=== PATIENT | female | born 1965 | race Asian ===

== ENCOUNTER 2017-09-13 11:23 | Inpatient (IN) | payer OTHER ==
[~2017-09-13] VITALS: Ht 157.5 cm; Wt 63.0 kg
[2017-09-13 11:27] VITALS: Ht 157.5 cm; Wt 63.0 kg
[2017-09-13 12:01] LABS: BASOPHIL % 0.7 % (0-2); PLATELET COUNT 189 x10^3mcL (130-400); RED CELL DISTRIBUTION WIDTH 13.7 % (11.5-14.5)
[2017-09-13 12:11] LABS: CALCIUM 8.5 mg/dL (8.5-10.1); CARBON DIOXIDE 31.4 mmol/L (21-32); CHLORIDE SERUM 124 mmol/L (98-107); CREATININE SERUM 0.9 mg/dL (0.6-1.0); GFR1 > 60 mL/min; GLUCOSE SERUM 132 mg/dL (74-106); POTASSIUM SERUM 4.3 mmol/L (3.5-5.1); SODIUM SERUM 143 mmol/L (136-145)
[2017-09-13 12:16] LABS: ALBUMIN 3.5 g/dL (3.4-5.0); ALKALINE PHOSPHATASE 66 U/L (46-116); ALT/SGPT 18 U/L (14-59); AST/SGOT 18 U/L (15-37); BILIRUBIN TOTAL 0.5 mg/dL (0.20-1.00)
[2017-09-13 14:20] LABS: MAGNESIUM 2.3 mg/dL (1.8-2.4); PHOSPHOROUS 3.7 mg/dL (2.5-4.9)
[2017-09-13 14:25] LABS: CHOLESTEROL/HDL RATIO 2.4
[2017-09-13 14:27] LABS: FREE T4 1.07 ng/dL (0.76-1.46); FREE THYROXINE INDEX 2.9 ug/dL (1.4-4.5); T4(THYROXINE) 9.2 ug/dL (4.7-13.3)
[2017-09-13 14:29] LABS: T3 TOTAL 1.14 ng/mL
[2017-09-13] MEDS ORDERED: ZESTRIL20 MG PO (14:55)
[2017-09-13] MEDS ORDERED: PLA75 PO (14:55)
[2017-09-13 15:14] VITALS: BP 112/72
[2017-09-13 15:22] LABS: microscopic required? NO
[2017-09-13 16:08] VITALS: BP 116/50
[2017-09-13 16:08] LABS: UA SPECIFIC GRAVITY <=1.005 (1.005-1.035); urine erythrocyte NEGATIVE (NEGATIVE)
[2017-09-13] MEDS ORDERED: FLONS (16:26)
[2017-09-13] MEDS ORDERED: ZYRTEC10 MG PO (16:26)
[2017-09-13 20:53] VITALS: BP 121/66
[2017-09-14 05:55] VITALS: BP 104/56
[2017-09-14 06:32] LABS: CALCIUM 8.9 mg/dL (8.5-10.1); CARBON DIOXIDE 26.8 mmol/L (21-32); CHLORIDE SERUM 108 mmol/L (98-107); CREATININE SERUM 0.7 mg/dL (0.6-1.0); GFR1 > 60 mL/min; GLUCOSE SERUM 131 mg/dL (74-106); MAGNESIUM 2.3 mg/dL (1.8-2.4); PHOSPHOROUS 3.6 mg/dL (2.5-4.9); PLATELET COUNT 202 x10^3mcL (130-400); POTASSIUM SERUM 4.1 mmol/L (3.5-5.1); RED CELL DISTRIBUTION WIDTH 13.8 % (11.5-14.5); SODIUM SERUM 142 mmol/L (136-145)
[2017-09-14 06:42] LABS: BASOPHIL % 0 % (0-2)
[2017-09-14 10:30] VITALS: BP 113/63
[2017-09-14 14:18] VITALS: BP 140/77
[2017-09-14 15:15] VITALS: BP 140/77
[2017-09-14] MEDS ORDERED: CLA10 PO (16:09)
[2017-09-14] MEDS ORDERED: AMO500 PO (16:09)
[2017-09-14] MEDS ORDERED: LAC PO (16:09)
[2017-09-14] MEDS ORDERED: PLA75 PO (16:16)
[2017-09-14] MEDS ORDERED: ZESTRIL20 MG PO (16:16)
[2017-09-14] MEDS ORDERED: FLONS (16:16)
== END 2017-09-14 16:21 | disposition home or self-care (01) | DRG 206 ==
LOC: ED 11:23 → DU 13:22
PROVIDERS: Emergency Medicine; Family Medicine
DX: M94.0 Chondrocostal junction syndrome [Tietze] (principal); J98.11 Atelectasis; I10 Essential (primary) hypertension; J30.2 Other seasonal allergic rhinitis; E87.8 Other disorders of electrolyte and fluid balance, not elsewhere classified; J40 Bronchitis, not specified as acute or chronic; Z79.82 Long term (current) use of aspirin; Z68.25 Body mass index [BMI] 25.0-25.9, adult; Z82.49 Family history of ischemic heart disease and other diseases of the circulatory system; Q27.8 Other specified congenital malformations of peripheral vascular system
CPT/HCPCS: 83880; 84439; 85378; J2920; J3010; J7030; J7620; Q9967